=== PATIENT | male | born 1990 | race Caucasian/White ===

== ENCOUNTER 2016-11-21 07:54 | Emergency (ER) | payer OTHER ==
[~2016-11-21] VITALS: Ht 172.7 cm; Wt 83.0 kg
[2016-11-21 07:59] VITALS: BP 144/78
[2016-11-21] MEDS ORDERED: IBUPROFEN 200 MG TABLET ONE (08:19)
[2016-11-21] MEDS ORDERED: IBUPROFEN 200 MG TABLET PO ONE (08:30)
== END 2016-11-21 09:40 | disposition home or self-care (01) ==
LOC: ED 08:50
DX: S90.122A Contusion of left lesser toe(s) without damage to nail, initial encounter (principal); W50.0XXA Accidental hit or strike by another person, initial encounter; Y93.72 Activity, wrestling; Y92.328 Other athletic field as the place of occurrence of the external cause; Y99.9 Unspecified external cause status
CPT/HCPCS: 99284

== ENCOUNTER 2017-04-03 17:00 | Emergency (ER) | payer SELFPAY ==
[~2017-04-03] VITALS: Ht 172.7 cm; Wt 89.0 kg
[2017-04-03 17:11] VITALS: BP 138/88
== END 2017-04-03 18:46 | disposition home or self-care (01) ==
LOC: ED 18:30
DX: M25.562 Pain in left knee (principal)
CPT/HCPCS: 29505